=== PATIENT | female | born 1970 | race American Indian/Alaskan Native ===

== ENCOUNTER 2021-10-09 11:47 | Emergency (ER) | payer SELFPAY ==
--- NOTE | 2021-10-09 12:05 | Emergency Department Report ---
ED Psych HPI - General Stated Complaint: SUCIDAL THOUGHTS Time Seen by Provider: 10/09/21 12:00 - History of Present Illness Initial Comments: Patient was brought in by ambulance for suicidal ideation. She states that she thought about killing herself by drinking bleach. She attempted that 4 years ago. Patient states that she lost her job on the 11th of this month. She states that she is going to lose her house. Bills are piling up and she cannot afford this. Patient states that she was looking at what her options were and decided suicide was the best option. EMS was called and the patient was transported here. She was seen before EMS by a counselor. The counselor placed her on a 1013. EMS was called at that point for transport. Patient states that she did not do anything to harm her self. She just thought about it. - Related Data Allergies Allergy/AdvReac Type Severity Reaction Status Date / Time No Known Allergies Allergy Verified 10/09/21 12:08 ED Review of Systems ROS: Stated complaint: SUCIDAL THOUGHTS Other details as noted in HPI Comment: All other systems reviewed and negative Constitutional: denies: fever Eyes: denies: vision change ENT: denies: throat pain Respiratory: denies: cough Cardiovascular: denies: chest pain Endocrine: denies: unexplained weight loss Gastrointestinal: denies: abdominal pain Genitourinary: denies: dysuria Musculoskeletal: denies: back pain Skin: denies: rash Neurological: denies: headache Psychiatric: as per HPI Hematological/Lymphatic: denies: easy bruising ED Past Medical Hx - Past Medical History Hx Psychiatric Treatment: Yes (Depression) - Family History Family history: no significant ED Physical Exam - General Limitations: No Limitations, Other (Pulse ox noted by EMS and normal) General appearance: alert, in no apparent distress - Head Head exam: Present: atraumatic, normocephalic - Eye Eye exam: Present: normal appearance, EOMI. Absent: scleral icterus - ENT ENT exam: Present: normal orophraynx, normal external ear exam - Neck Neck exam: Present: normal inspection. Absent: meningismus - Respiratory Respiratory exam: Present: normal lung sounds bilaterally. Absent: respiratory distress - Cardiovascular Cardiovascular Exam: Present: regular rate, normal rhythm - GI/Abdominal GI/Abdominal exam: Present: soft. Absent: distended, tenderness - Extremities Exam Extremities exam: Present: normal capillary refill - Back Exam Back exam: Absent: CVA tenderness (R), CVA tenderness (L) - Neurological Exam Neurological exam: Present: alert, oriented X3, CN II-XII intact, normal gait. Absent: motor sensory deficit - Psychiatric Psychiatric exam: Present: flat affect, suicidal ideation - Skin Skin exam: Present: warm, dry ED Course Vital Signs 10/09/21 12:07 Temperature 98.1 F Pulse Rate 86 Respiratory 16 Rate Blood Pressure 148/90 [Right] O2 Sat by Pulse 98 Oximetry - Reevaluation(s) Reevaluation #1: 10/09/21 11:54 EMS was met upon arrival. Labs and psychiatric evaluation were ordered. Reevaluation #2: 10/09/21 16:14 Labs have been noted. Urine drug screen is pending. Psychiatric evaluation is complete. They are recommending admission. We will await psychiatric disposition. Patient will be kept from harming her self. She is currently on a 1013. ED Medical Decision Making - Lab Data Result diagrams: 10/09/21 13:21 10/09/21 13:21 - Medical Decision Making Patient presented with [address] for suicidal thoughts. She was planning on drinking bleach. She had not acted on her thoughts. At this time, she will be admitted to a psychiatric facility once 1 can be located. She does not appear to be delusional. She is not responding to extraneous stimuli. There is no evidence of acute psychosis. Critical Care Time: No Critical care attestation.: If time is entered above; I have spent that time in minutes in the direct care of this critically ill patient, excluding procedure time. ED Disposition Clinical Impression: Suicidal ideation Disposition: 30 STILL A PATIENT Is pt being admited?: No Condition: Stable
[2021-10-09 14:07] LABS: Basophils % (Auto) 1.2 % (0.0-1.8); Eosinophils # (Auto) 0.2 K/mm3 (0.0-0.4); Eosinophils % (Auto) 6.2 % (0.0-4.3); Hematocrit 42.1 % (30.3-42.9); Hemoglobin 13.5 gm/dl (10.1-14.3); Lymphocytes # (Auto) 1.7 K/mm3 (1.2-5.4); Lymphocytes % (Auto) 46.9 % (13.4-35.0); Mean Corpuscular HGB Conc 32 % (30-34); Mean Corpuscular Volume 96 fl (79-97); Monocytes # (Auto) 0.3 K/mm3 (0.0-0.8); Monocytes % (Auto) 7.7 % (0.0-7.3); Platelet Count 348 K/mm3 (140-440); Red Blood Count 4.37 M/mm3 (3.65-5.03)
[2021-10-09 14:31] LABS: Alanine Aminotransferase 22 units/L (7-56); Albumin 4.1 g/dL (3.9-5); BUN/Creatinine Ratio 28; Blood Urea Nitrogen 17 mg/dL (7-17); Calcium 8.9 mg/dL (8.4-10.2); Hemolysis Index 14
[2021-10-09] MEDS ORDERED: amLODIPine 5 MG TAB PO SCH (22:00)
[2021-10-10] MEDS ORDERED: methylPREDNISolone Sod Succinate 125 MG/2 ML INJ IV ONE (02:06)
[2021-10-10] MEDS ORDERED: IPRATROPIUM/ALBUTEROL SULFATE 3 ML AMPUL.NEB IH ONE (02:07)
[2021-10-10] MEDS ORDERED: hydrALAZINE 20 MG/1 ML INJ IV ONE (02:07)
--- NOTE | 2021-10-10 02:52 | XRay Report ---
CHEST 2 VIEWS INDICATION / CLINICAL INFORMATION: SOB. COMPARISON: None available. FINDINGS: SUPPORT DEVICES: None. HEART / MEDIASTINUM: No significant abnormality. LUNGS / PLEURA: No significant pulmonary or pleural abnormality. No pneumothorax. ADDITIONAL FINDINGS: No significant additional findings. IMPRESSION: 1. No acute findings. Signer Name: Artemio Soto MD Signed: 10/10/2021 2:48 AM Workstation Name: [id number]
--- NOTE | 2021-10-10 02:58 | Emergency Department Report ---
Blank Doc - Documentation Documentation: Was called by the psychiatric nurse to reevaluate this patient. She has been having some issues with hypertension and received a dose of 5 mg of Norvasc earlier today. Her blood pressure is 159/100. She has started to complain of some shortness of breath and wheezing. She does admit to history of asthma. On examination there is some mild inspiratory and expiratory wheezing. The patient will receive a dose of IV Solu-Medrol, hydralazine and a DuoNeb breathing treatment. She does have some tachycardia and the DuoNeb will most likely increase that in the short-term. Her blood alcohol level 0.25 and she says that she does have some history of binge drinking but denies any history of alcohol dependence and withdrawal. I have placed for the patient to receive a banana bag. Chest x-ray was done that does not show any pneumonia, pleural effusions, pneumothorax, focal consolidation, widened mediastinum, or any other acute process. We will continue to monitor this patient during her ED course.
[2021-10-10] MEDS ORDERED: THIAMINE 100 MG, FOLIC ACID 1 MG, MULTIPLE VITAMIN INJ, ADULT 10 ML in SODIUM CHLORIDE ... IV ONE (03:07)
[2021-10-10 06:41] LABS: Amphetamine Screen,Urine Negative; Benzodiazepines Screen,Urine Negative; Cannabinoid Screen,Urine Negative; Cocaine Screen,Urine Negative; Methadone Screen,Urine Negative; Opiate Screen,Urine Negative
--- NOTE | 2021-10-10 10:23 | Consultation ---
History of Present Illness - Reason for Consult Consult date: 10/10/21 Reason for consult: suicidal ideation - History of Present Psychiatric Illness ED Note: Patient was brought in by ambulance for suicidal ideation. She states that she thought about killing herself by drinking bleach. She attempted that 4 years ago. Patient states that she lost her job on the 11th of this month. She states that she is going to lose her house. Bills are piling up and she cannot afford this. Patient states that she was looking at what her options were and decided suicide was the best option. EMS was called and the patient was transported here. She was seen before EMS by a counselor. The counselor placed her on a 1013. EMS was called at that point for transport. Patient states that she did not do anything to harm her self. She just thought about it. Masoud Stewart is a 51 year old female with history of depression and anxiety disorder. In my interview with the patient, she is calm. The patient reports that she was having a nervous breakdown because she recent lost her job and will be losing her apartment soon. The patient states her family members are in [place]. The patient states that she has a job interview tomorrow. She denies any current suicidal/homicidal ideation and denies hallucinations. PAST PSYCHIATRIC HISTORY: Diagnoses: Depression, Anxiety Suicide attempts or Self-harm behavior: Yes Prior psychiatric hospitalizations: Yes Substance Abuse history: Denies Previous psychiatric medications tried:Denies Outpatient treatment:unknown PAST MEDICAL HISTORY: Family Psychiatric History: None reported or documented SOCIAL HISTORY Marital Status: Single Living Arrangements: Lives alone Employment Status:unemployed Access to guns/weapons: Yes Education: some college History of Abuse: Denies Legal History:Unknown REVIEW OF SYSTEMS Constitutional: Negative for weight loss ENT: Negative for stridor Respiratory: Negative for cough or hemoptysis All other systems reviewed and are negative MENTAL STATUS EXAMINATION General Appearance and Behavior: Age appropriate, good hygiene, wearing appropriate clothes, cooperative polite with questioning. Cooperation: cooperative Psychomotor Behavior: Normal Mood:calm Affect and affective range:congruent Thought Process:Goal directed Thought Content:Reality oriented Speech:normal Intellectual Functioning: Average Suicidal Ideation:Denies Homicidal Ideation: Denies Hallucination: Denies Impulse Control:Normal Insight and Judgment:limited insight and good judgment Memory: Intact Attention:Normal Orientation: Alert and oriented Diagnoses: (1) major depressive disorder (2) Unspecified anxiety disorder Treatment Plan: Continue - Home Medications. Patient should be compliant with medications and not to use drugs and not to drink alcohol. PSYCHOTHERAPY: Supportive psychotherapy provided MEDICAL: Per primary team DELIRIUM PRECAUTIONS: Please re-orient patient frequently, keep lights on during the day, and minimize benzodiazepines and opiates as these medications could worsen patient's confusion. 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 Janitor will provide patient with psychiatric out patient resources and safety plan. FOLLOW-UP: Will sign off. Thank you for the consult. Please contact with any questions and/or concerns. Medications and Allergies Medications and Allergies Allergies Allergy/AdvReac Type Severity Reaction Status Date / Time No Known Allergies Allergy Verified 10/09/21 12:08 Active Meds: Active Medications Amlodipine Besylate (Amlodipine 5 Mg Tab) 5 mg PO DAILY KIM Last Admin: 10/09/21 22:00 Dose: 5 mg Mental Status Exam - Vital signs Last Vital Signs Temp 98.2 F 10/10/21 02:05 Pulse 94 H 10/10/21 06:20 Resp 18 10/10/21 06:20 BP 176/89 10/10/21 06:20 Pulse Ox 100 10/10/21 06:20 Results Result Diagrams: 10/09/21 13:21 10/09/21 13:21 Abnormal lab results 10/09/21 10/09/21 10/09/21 Range/Units 13:21 13:21 13:21 WBC 3.6 L (4.5-11.0) K/mm3 Lymph % (Auto) 46.9 H (13.4-35.0) % Crane % (Auto) 7.7 H (0.0-7.3) % Eos % (Auto) 6.2 H (0.0-4.3) % Seg Neutrophils % 38.0 L (40.0-70.0) % Seg Neutrophils # 1.4 L (1.8-7.7) K/mm3 TSH 0.262 L (0.270-4.200) mlU/mL Plasma/Serum Alcohol 0.25 H (0-0.07) % All other labs normal.
--- NOTE | 2021-10-10 11:27 | Emergency Department Report ---
Blank Doc - Documentation Documentation: Patient has been medically cleared. She was seen by psychiatric services and cleared. Patient was discharged with outpatient resources. She did complete a plan of safety.
[2021-10-10 12:10] VITALS: BP 162/91
== END 2021-10-10 12:18 | disposition home or self-care (01) ==
LOC: ED 11:47
DX: F32.9 Major depressive disorder, single episode, unspecified (principal); R45.851 Suicidal ideations; F41.9 Anxiety disorder, unspecified; Z20.822 Contact with and (suspected) exposure to COVID-19
CPT/HCPCS: 36415; 71046; 80053; 80307; 84443; 85025; 96365; 96366; 96375; 99285; J0360; J2930; J3411; J3490; J7030; U0003; 80320; Q0162; G0480